=== PATIENT | male | born 1995 | race Caucasian/White ===

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

== ENCOUNTER 2017-04-10 20:03 | Inpatient (IN) | payer OTHER ==
[2017-04-10 20:48] LABS: HEMATOCRIT 39.6 % (42.0-52.0); HEMOGLOBIN 13.2 g/dl (14.0-18.0); MEAN CORPUSCULAR HEMOGLOBIN 29.9 pg (27.0-33.0); MEAN CORPUSCULAR HGB CONC 33.3 g/dl (32.0-36.5); MEAN CORPUSCULAR VOLUME 89.8 fl (80.0-96.0); PLATELET COUNT, AUTOMATED 309 10^3/uL (150-450); RED BLOOD COUNT 4.41 10^6/uL (4.30-6.10); RED CELL DISTRIBUTION WIDTH 12.2 % (11.5-14.5); WHITE BLOOD COUNT 6.8 10^3/uL (4.0-10.0)
[2017-04-10 21:20] LABS: AMPHETAMINES LEVEL URINE NEGATIVE (NEGATIVE); BARBITURATES URINE NEGATIVE (NEGATIVE); BENZODIAZEPINES URINE NEGATIVE (NEGATIVE); CANNABINOIDS URINE NEGATIVE (NEGATIVE); COCAINE METABOLITE URINE NEGATIVE (NEGATIVE); METHADONE URINE NEGATIVE (NEGATIVE); OPIATES URINE NEGATIVE (NEGATIVE); PHENCYCLIDINE URINE NEGATIVE (NEGATIVE)
[2017-04-10 21:30] LABS: ALBUMIN 4.2 GM/DL (3.2-5.2); ALBUMIN/GLOBULIN RATIO 1.08 (1.00-1.93); ALKALINE PHOSPHATASE 101 U/L (45-117); ALT/SGPT 31 U/L (12-78); ANION GAP 7 MEQ/L (8-16); AST/SGOT 18 U/L (7-37); BILIRUBIN,DIRECT 0.1 MG/DL (0.0-0.2); BILIRUBIN,TOTAL 0.5 MG/DL (0.2-1.0); BLOOD UREA NITROGEN 12 MG/DL (7-18); CALCIUM LEVEL 8.9 MG/DL (8.5-10.1); CARBON DIOXIDE LEVEL 29 MEQ/L (21-32); CHLORIDE LEVEL 102 MEQ/L (98-107); CREATININE FOR GFR 0.91 MG/DL (0.70-1.30); ETHYL ALCOHOL (ETHANOL) 0.006 % (0.000-0.010); GLUCOSE, FASTING 141 MG/DL (70-105); POTASSIUM SERUM 3.5 MEQ/L (3.5-5.1); SALICYLATE LEVEL < 1.7 MG/DL (5.0-30.0); SODIUM LEVEL 138 MEQ/L (136-145); TOTAL PROTEIN 8.1 GM/DL (6.4-8.2)
[2017-04-10 21:42] LABS: ACETAMINOPHEN LEVEL < 2.0 UG/ML (10.0-30.0)
[2017-04-10] MEDS ORDERED: MOM 30ML SUSPENSION UDC PO (22:15)
[2017-04-10] MEDS ORDERED: MAALOX 30 ML SUSP *UDC PO (22:15)
[2017-04-10] MEDS ORDERED: traZODone 50 MG TAB PO (22:15)
[2017-04-10] MEDS ORDERED: ACETAMINOPHEN TAB 650MG DOSE (2X325MG) PO (22:15)
[2017-04-12] MEDS ORDERED: hydrOXYzine 50 MG TAB PO (17:30)
[2017-04-13] MEDS: PARoxetine 25 MG CR TAB (PAXIL CR) PO (09:00)
[2017-04-14] MEDS: PARoxetine 25 MG CR TAB (PAXIL CR) PO (09:02)
[2017-04-15] MEDS: PARoxetine 25 MG CR TAB (PAXIL CR) PO (08:43)
[2017-04-16] MEDS: PARoxetine 25 MG CR TAB (PAXIL CR) PO (08:45)
== END 2017-04-16 13:25 | disposition home or self-care (01) | DRG 881 ==
LOC: M ED 20:03 → M ED INP 22:11 → M PSY 22:47
DX: F32.9 Major depressive disorder, single episode, unspecified (principal)